=== PATIENT | female | born 1970 | race Caucasian/White ===

== ENCOUNTER 2017-07-12 16:30 | Outpatient (CLI) | payer BC | END 2017-07-12 16:31 | disposition home or self-care (01) | LOC: BICMAMMO 16:30 | PROVIDERS: ATTEND Obstetrics & Gynecology | DX: Z12.31 Encounter for screening mammogram for malignant neoplasm of breast (principal); N64.89 Other specified disorders of breast; Z80.3 Family history of malignant neoplasm of breast | CPT/HCPCS: 77063; 77067 ==

== ENCOUNTER 2017-07-25 08:20 | Outpatient (CLI) | payer BC | END 2017-07-25 08:21 | disposition home or self-care (01) | LOC: BICMAMMO 08:20 | PROVIDERS: ATTEND Obstetrics & Gynecology | DX: N63.10 Unspecified lump in the right breast, unspecified quadrant (principal); Z80.3 Family history of malignant neoplasm of breast | CPT/HCPCS: G0279 ==

== ENCOUNTER 2019-09-17 08:12 | Outpatient (CLI) | payer BC ==
--- NOTE | 2019-09-17 09:02 | BD ---
DEXA BONE DENSITY STUDY: HISTORY: Encounter for screening for osteoporosis. FINDINGS: Lumbar Spine: BMD (g/cm2) L1 0.876 T-Score: -1.0 L2 0.929 T-Score: -0.9 L3 0.910 T-Score: -1.6 L4 0.927 T-Score: -1.2 L1-L4 0.912 T-Score: -1.2 Femoral Neck: 0.741 T-Score: -1.0 Total Femur: 0.953 T-Score: +0.1 Impression: Normal bone mineral density of the left femoral neck and osteopenia of the lumbar spine. POS: C
== END 2019-09-17 08:13 | disposition home or self-care (01) ==
LOC: BICMAMMO 08:12
PROVIDERS: ATTEND Obstetrics & Gynecology
DX: Z13.820 Encounter for screening for osteoporosis (principal); M85.88 Other specified disorders of bone density and structure, other site
CPT/HCPCS: 77080

== ENCOUNTER 2024-06-15 08:23 | Outpatient (CLI) | payer BC | END 2024-06-15 08:24 | disposition home or self-care (01) | LOC: BICMAMMO 08:23 | PROVIDERS: ATTEND Student in an Organized Health Care Education/Training Program | DX: Z13.820 Encounter for screening for osteoporosis (principal); M85.89 Other specified disorders of bone density and structure, multiple sites | CPT/HCPCS: 77080 ==